=== PATIENT | male | born 1995 | race Caucasian/White ===

== ENCOUNTER 2022-03-25 00:13 | Emergency (ER) | payer OTHER ==
[2022-03-25] MEDS ORDERED: Ondansetron PF 4 MG/2 ML Vial ONE (00:50)
[2022-03-25] MEDS ORDERED: Dicyclomine 20 MG/2 ML VIAL ONE (00:50)
[2022-03-25] MEDS ORDERED: Famotidine/PF 20 mg/2ml Vial ONE (00:50)
[2022-03-25 01:02] LABS: ALT (SGPT) 12 U/L (8-55); AST (SGOT) 20 U/L (5-34); Albumin 4.8 g/dL (3.5-5.0); Alkaline Phosphatase 77 U/L (40-110); Anion Gap 17 mmol/L (10-20); BUN (Urea Nitrogen) 22 mg/dL (8.9-20.6); Bilirubin, Total 1.2 mg/dL (0.2-1.2); Calc. Creatinine Clearance 0 mL/min (70-130); Calcium 9.8 mg/dL (7.8-10.44); Carbon Dioxide 22 mmol/L (22-29); Chloride 105 mmol/L (98-107); Estimated GFR 68; Globulin 3.1 g/dL (2.4-3.5); Glucose 123 mg/dL (70-105); Lipase 39 U/L (8-78); Potassium 4.1 mmol/L (3.5-5.1); Protein, Total 7.9 g/dL (6.0-8.3); Sodium 140 mmol/L (136-145)
== END 2022-03-25 03:54 | disposition home or self-care (01) ==
LOC: CSHERS 00:13
DX: K29.00 Acute gastritis without bleeding (principal)
CPT/HCPCS: 80053; 83690; 87804; 96361; 96372; 96374; 96375; J2405; S0028